=== PATIENT | female | born 1935 | race Caucasian/White ===

== ENCOUNTER 2018-09-16 22:57 | Inpatient (IN) | payer BC, MEDICARE ==
[~2018-09-16] VITALS: Ht 172.7 cm; Wt 88.7 kg
[2018-09-16] MEDS ORDERED: ASPIRIN 81 MG TABLET CHEW PO ONE (23:30)
[2018-09-16] MEDS ORDERED: SODIUM CHLORIDE FLUSH 10ML SYR IVF ONE (23:30)
[2018-09-16] MEDS ORDERED: DILTIAZEM 5 MG/ML, 5ML IV ONE (23:30)
[2018-09-16 23:31] LABS: BASOPHILS # (AUTO) 0.03 x10^3/uL (0-0.1); BASOPHILS % (AUTO) 0 % (0-1); EOSINOPHILS # (AUTO) 0.14 x10^3/uL (0-0.4); EOSINOPHILS % (AUTO) 2 % (1-7); LYMPHOCYTES # (AUTO) 1.62 x10^3/uL (1-3.4); LYMPHOCYTES % (AUTO) 17 % (22-44); MD NO; MEAN CORPUSCULAR HEMOGLOBIN 31.7 pg (27.0-34.8); MEAN CORPUSCULAR HGB CONC 33.6 g/dL (32.4-35.8); MEAN CORPUSCULAR VOLUME 94.5 fL (80-100); MONOCYTES # (AUTO) 0.66 x10^3/uL (0.2-0.8); MONOCYTES % (AUTO) 7 % (2-9); NEUTROPHILS # (AUTO) 7.18 x10^3/uL (1.8-6.8); NEUTROPHILS % (AUTO) 75 % (42-75); PLATELET COUNT 278 x10^3/uL (130-400); RED CELL DISTRIBUTION WIDTH 14.9 % (9.6-15.2)
[2018-09-16] MEDS ORDERED: DILTIAZEM 5 MG/ML, 5ML ONE (23:31)
[2018-09-16] MEDS ORDERED: ASPIRIN 81 MG TABLET CHEW ONE (23:31)
[2018-09-16 23:42] LABS: INTERNATIONAL NORMALIZED RATIO 1.25 (0.93-1.1); PROTHROMBIN TIME 13.1 Seconds (9.6-11.5)
[2018-09-16 23:44] LABS: CHLORIDE 98 mmol/L (98-107)
[2018-09-16 23:45] LABS: ALBUMIN 3.9 g/dL (3.4-5.0); ANION GAP 11 mmol/L (5-15); CALCIUM 8.9 mg/dL (8.5-10.1); CREATININE 1.25 mg/dL (0.55-1.02)
[2018-09-16 23:49] LABS: FREE T4 (FREE THYROXINE) 1.54 ng/dL (0.76-1.46); TROPONIN I 0.239 ng/mL (0.000-0.045)
[2018-09-17] MEDS ORDERED: DOCUSATE 100 MG CAPSULE PO PRN (01:00)
[2018-09-17] MEDS ORDERED: DILTIAZEM 5 MG/ML, 5ML IVPush PRN (01:00)
[2018-09-17] MEDS ORDERED: ACETAMINOPHEN 325 MG TABLET PO PRN (01:00)
[2018-09-17] MEDS ORDERED: GUAIFENESIN/DM 200-20MG, 10ML UDC PO PRN (01:00)
[2018-09-17] MEDS ORDERED: ONDANSETRON 2MG/ML, 2ML IVPush PRN (01:00)
[2018-09-17] MEDS ORDERED: LIDODERM 5% PATCH TD PRN (01:00)
[2018-09-17] MEDS ORDERED: TEMAZEPAM 15 MG CAPSULE PO PRN (01:00)
[2018-09-17 01:26] LABS: TROPONIN I 0.212 ng/mL (0.000-0.045)
[2018-09-17 02:01] VITALS: BP 154/93
[2018-09-17 07:35] VITALS: BP 148/81
[2018-09-17 07:45] LABS: TROPONIN I 0.201 ng/mL (0.000-0.045)
[2018-09-17] MEDS: LACTOBACILLUS 1GM/ PACKET PO SCH (08:49)
[2018-09-17] MEDS: METOPROLOL TARTRATE 25 MG TABLET PO SCH ×3 (09:00→18:37)
[2018-09-17] MEDS ORDERED: ENOXAPARIN 40 MG/0.4 ML SQ SCH (09:00)
[2018-09-17] MEDS ORDERED: METOPROLOL TARTRATE 50 MG TABLET PO SCH (09:00)
[2018-09-17 12:45] VITALS: BP 128/81
[2018-09-17] MEDS: ASPIRIN 325 MG TABLET EC PO SCH (18:26)
[2018-09-17 19:49] VITALS: BP 132/86
[2018-09-18 00:42] VITALS: BP 123/92
[2018-09-18] MEDS: METOPROLOL TARTRATE 25 MG TABLET PO SCH ×2 (00:46→06:30)
[2018-09-18 05:32] LABS: ANION GAP 9 mmol/L (5-15); CALCIUM 8.3 mg/dL (8.5-10.1); CHLORIDE 101 mmol/L (98-107)
[2018-09-18 05:33] LABS: CREATININE 1.33 mg/dL (0.55-1.02)
[2018-09-18] MEDS: ASPIRIN 325 MG TABLET EC PO SCH (06:30)
[2018-09-18] MEDS: LACTOBACILLUS 1GM/ PACKET PO SCH (07:50)
== END 2018-09-18 08:53 | disposition left against medical advice (07) | DRG 309 ==
LOC: ED 09-17 00:22 → EDIP 09-17 00:46 → 5SO 09-17 01:48
PROVIDERS: ADMIT Internal Medicine; ATTEND Internal Medicine
DX: I48.91 Unspecified atrial fibrillation (principal); J90 Pleural effusion, not elsewhere classified; I31.3 Pericardial effusion (noninflammatory); E87.1 Hypo-osmolality and hyponatremia; N17.9 Acute kidney failure, unspecified; I42.9 Cardiomyopathy, unspecified; I10 Essential (primary) hypertension; R73.9 Hyperglycemia, unspecified; Z53.21 Procedure and treatment not carried out due to patient leaving prior to being seen by health care provider; J40 Bronchitis, not specified as acute or chronic; Z96.653 Presence of artificial knee joint, bilateral; Z98.1 Arthrodesis status
CPT/HCPCS: 36415; 71045; 80048; 82040; 83735; 83880; 84145; 84439; 84443; 84484; 85025; 85610; 85730; 93005; 93306; 96374; 99291; G0378; J1650; J2405

== ENCOUNTER 2020-12-29 04:35 | Emergency (ER) | payer BC, MEDICARE ==
[~2020-12-29] VITALS: Ht 172.7 cm; Wt 80.0 kg
--- NOTE | 2020-12-29 05:02 | NUR ---
PT HERE BECAUSE OF SOB, PT STATES SHE GOT PUT ON NEW MEDS, INCLUDING AMIODERONE AND LOSARTAN, AND THINKS THAT SHE HAS BEEN HAVING ADVERSE EFFECTS INCLUDING N/V/D AND THE SOB ESPECIALLY WITH EXERTION. PT DENIES PAIN, EKG DONE IN TRIAGE, PT ON ALL MONITORS, AWAITING ERP EVAL
--- NOTE | 2020-12-29 05:04 | NUR ---
PT RHYTM SEEMS TO BE GOING IN AND OUT OF A-FIB. PT HAS HISTORY OF A-FIB
[2020-12-29] MEDS ORDERED: METOPROLOL 1 MG/ML, 5ML IVPush PRN (05:30)
[2020-12-29] MEDS ORDERED: METOPROLOL 1 MG/ML, 5ML ONE (05:37)
[2020-12-29 05:42] LABS: BASOPHILS % (AUTO) 1 % (0-1); EOSINOPHILS % (AUTO) 3 % (1-7); LYMPHOCYTES % (AUTO) 17 % (22-44); MD NO; MEAN CORPUSCULAR HEMOGLOBIN 30.2 pg (27.0-34.8); MEAN CORPUSCULAR HGB CONC 33.4 g/dL (32.4-35.8); MEAN PLATELET VOLUME 7.8 fL (7.4-10.4); MONOCYTES % (AUTO) 8 % (2-9); NEUTROPHILS % (AUTO) 71 % (42-75); PLATELET COUNT 278 x10^3/uL (130-400); RED BLOOD COUNT 4.31 x10^6/uL (3.82-5.3); RED CELL DISTRIBUTION WIDTH 15.1 % (9.6-15.2)
--- NOTE | 2020-12-29 05:49 | NUR ---
PIV PLACED, LABS DRAWN, MEDICATION ADMINISTED, CXR AT BEDSIDE
[2020-12-29 05:54] LABS: ANION GAP 9 mmol/L (5-15); CALCIUM 8.8 mg/dL (8.5-10.1); CHLORIDE 100 mmol/L (98-107); CREATININE 1.49 mg/dL (0.55-1.02)
[2020-12-29 05:55] LABS: ALANINE AMINOTRANSFERASE 57 U/L (12-78); ALBUMIN 3.4 g/dL (3.4-5.0)
[2020-12-29 05:57] LABS: ALKALINE PHOSPHATASE 69 U/L (45-117); TOTAL PROTEIN 6.9 g/dL (6.4-8.2)
--- NOTE | 2020-12-29 06:36 | NUR ---
PT'S HEART RATE IS IRRGULAR BUT GOING FROM HIGH 80'S TO HIGH 90'S
[2020-12-29] MEDS ORDERED: METOPROLOL TARTRATE 25 MG TAB PO ONE (07:00)
--- NOTE | 2020-12-29 07:00 | NUR ---
report given to niki perez
--- NOTE | 2020-12-29 07:09 | NUR ---
report received from joaquim prince.
[2020-12-29] MEDS ORDERED: METOPROLOL TARTRATE 25 MG TAB ONE (07:12)
--- NOTE | 2020-12-29 07:29 | NUR ---
pt medicated per emar. pt tolerated well. pt's hr is 90's with a-fib at this time. pt denies any needs or concerns at this time.
[2020-12-29 08:26] VITALS: BP 133/93
--- NOTE | 2020-12-29 08:27 | NUR ---
Patient given discharge instructions and they have confirmed that they understand the instructions. Patient wheeled to dc with her .
== END 2020-12-29 08:28 | disposition home or self-care (01) ==
LOC: ED 06:13
DX: I48.0 Paroxysmal atrial fibrillation (principal); J15.9 Unspecified bacterial pneumonia; I10 Essential (primary) hypertension
CPT/HCPCS: 36415; 71045; 80053; 85025; 93005; 96374

== ENCOUNTER 2021-01-19 06:00 | Observation (INO) | payer BC ==
[~2021-01-19] VITALS: Ht 172.7 cm; Wt 86.6 kg
[2021-01-19] MEDS ORDERED: SODIUM CHLORIDE 0.9% 1,000 ML IV SCH ×2 (06:30)
[2021-01-19 07:05] VITALS: BP 146/107
[2021-01-19] MEDS ORDERED: LOSA25TA25 PO (07:05)
[2021-01-19] MEDS ORDERED: METO25TA35 PO (07:05)
[2021-01-19] MEDS ORDERED: APIX5TAB PO (07:05)
[2021-01-19] MEDS ORDERED: FURO20TA3 PO (07:05)
[2021-01-19 07:07] LABS: BASOPHILS % (AUTO) 1 % (0-1); EOSINOPHILS % (AUTO) 1 % (1-7); LYMPHOCYTES % (AUTO) 15 % (22-44); MEAN CORPUSCULAR HEMOGLOBIN 29.3 pg (27.0-34.8); MEAN CORPUSCULAR HGB CONC 33.5 g/dL (32.4-35.8); MEAN PLATELET VOLUME 7.8 fL (7.4-10.4); MONOCYTES % (AUTO) 7 % (2-9); NEUTROPHILS % (AUTO) 76 % (42-75); PLATELET COUNT 295 x10^3/uL (130-400); RED BLOOD COUNT 4.77 x10^6/uL (3.82-5.3)
[2021-01-19 07:09] LABS: ANION GAP 10 mmol/L (5-15); CALCIUM 9.5 mg/dL (8.5-10.1); CHLORIDE 98 mmol/L (98-107)
[2021-01-19 07:10] LABS: CREATININE 1.33 mg/dL (0.55-1.02); MD NO
[2021-01-19] MEDS ORDERED: LIDOCAINE 2%, 20ML ONE ×2 (07:45→09:33)
[2021-01-19] MEDS ORDERED: CEFAZOLIN PMX 1GM/50ML 50 ML ONE (07:45)
[2021-01-19] MEDS ORDERED: CEFAZOLIN 1,000 MG ONE (07:45)
[2021-01-19] MEDS ORDERED: MIDAZOLAM 1 MG/ML, 5ML ONE (07:45)
[2021-01-19] MEDS ORDERED: FENTANYL PF 100 MCG/2ML ONE ×2 (07:45→09:27)
[2021-01-19] MEDS ORDERED: MIDAZOLAM 1 MG/ML, 2ML ONE (09:27)
[2021-01-19] MEDS ORDERED: ACETAMINOPHEN 325 MG TABLET PO PRN (10:30)
[2021-01-19] MEDS ORDERED: HOLD MEDICATION MC PRN (10:30)
[2021-01-19] MEDS ORDERED: FUROSEMIDE 40 MG/4 ML IV ONE (12:00)
[2021-01-19] MEDS ORDERED: POTASSIUM CHLORIDE 20 MEQ TAB.ER.PRT PO ONE (12:00)
[2021-01-19 13:23] VITALS: BP 100/67
[2021-01-19] MEDS: CEFAZOLIN PMX 1GM/50ML 50 ML IVPB SCH ×2 (14:01→21:20)
[2021-01-19 19:04] VITALS: BP 99/68
[2021-01-19] MEDS: SODIUM CHLORIDE FLUSH 10ML SYR IVF SCH (21:00)
[2021-01-19] MEDS: METOPROLOL TARTRATE 25 MG TAB PO SCH (21:26)
[2021-01-19 23:08] VITALS: BP 94/51
[2021-01-20] MEDS ORDERED: LOSARTAN 25MG TABLET PO SCH (09:00)
[2021-01-20] MEDS ORDERED: FUROSEMIDE 20 MG TABLET PO SCH (09:00)
[2021-01-20] MEDS: SODIUM CHLORIDE FLUSH 10ML SYR IVF SCH (09:00)
[2021-01-20] MEDS ORDERED: FURO40TA6 PO (09:02)
[2021-01-20] MEDS ORDERED: POTA20TA89 PO (09:02)
[2021-01-20] MEDS ORDERED: ACET325T26 PO (09:02)
[2021-01-20 09:15] VITALS: BP 121/78
[2021-01-20] MEDS: METOPROLOL TARTRATE 25 MG TAB PO SCH (10:18)
== END 2021-01-20 11:14 | disposition home or self-care (01) ==
LOC: CACL 06:00 → 5SO 10:08 → DCLOUNGE 01-20 11:05
PROVIDERS: ADMIT Internal Medicine Cardiovascular Disease; ATTEND Internal Medicine Cardiovascular Disease
DX: I44.7 Left bundle-branch block, unspecified (principal); I11.0 Hypertensive heart disease with heart failure; I50.9 Heart failure, unspecified; I42.9 Cardiomyopathy, unspecified; I49.5 Sick sinus syndrome; I44.2 Atrioventricular block, complete; I45.5 Other specified heart block; I48.20 Chronic atrial fibrillation, unspecified; Z79.01 Long term (current) use of anticoagulants; Z79.899 Other long term (current) drug therapy
CPT/HCPCS: 33207; 33225; 36415; 71045; 71046; 80048; 85025; 93650; 96365; 96366; 96375; 99156; 99157; C1769; C1779; C1887; C1892; C1894; C1900; C2621; C2630; G0378; J0690; J1940; J2250; J3010; J3490; Q9967

== ENCOUNTER 2021-02-09 05:30 | Emergency (ER) | payer BC ==
[~2021-02-09] VITALS: Ht 172.7 cm; Wt 78.0 kg
[~2021-02-09 05:30] MED LIST: ACET325T26 PO; APIX5TAB PO; FURO20TA3 PO; FURO40TA6 PO; LOSA25TA25 PO; METO25TA35 PO; POTA20TA89 PO
[2021-02-09 05:33] VITALS: BP 143/85
--- NOTE | 2021-02-09 05:51 | NUR ---
ERP AT BEDSIDE
--- NOTE | 2021-02-09 06:01 | NUR ---
lab at bedside
[2021-02-09 06:12] LABS: BASOPHILS % (AUTO) 1 % (0-1); EOSINOPHILS % (AUTO) 2 % (1-7); LYMPHOCYTES % (AUTO) 14 % (22-44); MEAN CORPUSCULAR HEMOGLOBIN 28.1 pg (27.0-34.8); MEAN CORPUSCULAR HGB CONC 33.1 g/dL (32.4-35.8); MEAN PLATELET VOLUME 7.3 fL (7.4-10.4); MONOCYTES % (AUTO) 9 % (2-9); NEUTROPHILS % (AUTO) 74 % (42-75); PLATELET COUNT 286 x10^3/uL (130-400); RED BLOOD COUNT 4.44 x10^6/uL (3.82-5.3); RED CELL DISTRIBUTION WIDTH 17.5 % (9.6-15.2)
[2021-02-09 06:14] LABS: MD NO
[2021-02-09 06:26] LABS: ALANINE AMINOTRANSFERASE 36 U/L (12-78); ALBUMIN 3.6 g/dL (3.4-5.0); ANION GAP 10 mmol/L (5-15); CHLORIDE 101 mmol/L (98-107); CREATININE 1.13 mg/dL (0.55-1.02)
[2021-02-09 06:28] LABS: ALKALINE PHOSPHATASE 72 U/L (45-117); BILIRUBIN,TOTAL 1.3 mg/dL (0.2-1.0); TOTAL PROTEIN 7.2 g/dL (6.4-8.2)
== END 2021-02-09 07:05 | disposition home or self-care (01) ==
LOC: ED 07:04
DX: L29.8 Other pruritus (principal); I11.0 Hypertensive heart disease with heart failure; I48.91 Unspecified atrial fibrillation
CPT/HCPCS: 36415; 80053; 85025; 99283

== ENCOUNTER 2021-03-08 06:13 | Inpatient (IN) | payer BC, MEDICARE ==
[~2021-03-08] VITALS: Ht 172.7 cm; Wt 71.8 kg
--- NOTE | 2021-03-08 06:54 | NUR ---
Report to Doris SAUNDERS
--- NOTE | 2021-03-08 06:57 | NUR ---
Report received and care assumed. Pt A/O x4, EKG 12 lead and PCXR already performed. dietetic technician registered in room across the miller and states she is coming here next. Pt aware of order for IV start without meds so far. Pt assessment completed.
[2021-03-08] MEDS ORDERED: SODIUM CHLORIDE FLUSH 10ML SYR IVF ONE (07:00)
[2021-03-08 07:15] LABS: BASOPHILS % (AUTO) 0 % (0-1); EOSINOPHILS % (AUTO) 1 % (1-7); LYMPHOCYTES % (AUTO) 6 % (22-44); MEAN CORPUSCULAR HEMOGLOBIN 28.3 pg (27.0-34.8); MEAN CORPUSCULAR HGB CONC 33.4 g/dL (32.4-35.8); MEAN PLATELET VOLUME 7.5 fL (7.4-10.4); MONOCYTES % (AUTO) 5 % (2-9); NEUTROPHILS % (AUTO) 88 % (42-75); PLATELET COUNT 305 x10^3/uL (130-400); RED BLOOD COUNT 4.67 x10^6/uL (3.82-5.3); RED CELL DISTRIBUTION WIDTH 20.4 % (9.6-15.2)
[2021-03-08] MEDS ORDERED: AMPICILLIN/SULBACTAM 3 GM in SODIUM CHLORIDE 0.9% 100 ML IV ONE (07:20)
[2021-03-08 07:25] LABS: ALBUMIN 3.4 g/dL (3.4-5.0); ANION GAP 8 mmol/L (5-15); CALCIUM 8.8 mg/dL (8.5-10.1); CHLORIDE 104 mmol/L (98-107)
[2021-03-08] MEDS ORDERED: HYDROmorphone 1 MG/ML, 1ML INJ ONE (07:29)
[2021-03-08] MEDS ORDERED: HYDROmorphone 1 MG/ML, 1ML INJ IVPush PRN (07:30)
--- NOTE | 2021-03-08 07:41 | NUR ---
IV started with aseptic technique. Attempt to draw blood for a set of BC unsuccessful and dentures lab technician at bedside to draw both sets as ordered.
[2021-03-08 07:48] LABS: ALANINE AMINOTRANSFERASE 35 U/L (12-78); ALKALINE PHOSPHATASE 96 U/L (45-117); BILIRUBIN,TOTAL 1.3 mg/dL (0.2-1.0); CREATININE 1.14 mg/dL (0.55-1.02); TOTAL PROTEIN 7.4 g/dL (6.4-8.2)
--- NOTE | 2021-03-08 07:50 | NUR ---
IV pain med given with 0.5mg IVP given to start. Pt has some pain relief after admin noted 8/10 rated from 9/10 on reassessment. Unasyn gtt started as ordered.
[2021-03-08 07:52] LABS: TROPONIN I 0.344 ng/mL (0.000-0.045)
--- NOTE | 2021-03-08 07:54 | NUR ---
Critical lab received from [facility] and notified MD. US velazquez at bedside at this time for BLE eval for DVT. Unasyn running without issue. Pt aware of pending admission. Pt denies c/o chest pain or SOB at this time. All other lab and radiology results reviewed at this time by RN. Noted CXR stating early CHF possible.
--- NOTE | 2021-03-08 08:40 | NUR ---
Report called to [facility] and pt readied for transfer to floor.
[2021-03-08] MEDS ORDERED: ONDANSETRON 2MG/ML, 2ML ONE (08:46)
--- NOTE | 2021-03-08 08:52 | NUR ---
Pt given Zofran for sudden nausea with dry heaves after pain meds with good effect. Pain 5-6/10 and second 0.5mg of Dilaudid given once Zofran started to work for better pain control.
[2021-03-08] MEDS ORDERED: ONDANSETRON 2MG/ML, 2ML IVPush ONE (09:00)
[2021-03-08] MEDS ORDERED: FURO20TA3 PO (09:01)
[2021-03-08 09:17] VITALS: BP 156/81
[2021-03-08 09:33] VITALS: BP 156/81
[2021-03-08] MEDS ORDERED: FUROSEMIDE 20 MG/2 ML IV ONE (10:00)
[2021-03-08] MEDS ORDERED: PROMETHAZINE 25 MG/ML, 1ML IM PRN (10:00)
[2021-03-08] MEDS: APIXABAN 5 MG TABLET PO SCH ×3 (11:06→20:16)
[2021-03-08] MEDS: LOSARTAN 25MG TABLET PO SCH (11:06)
[2021-03-08] MEDS: POTASSIUM CHLORIDE 20 MEQ TAB.ER.PRT PO SCH (11:06)
[2021-03-08] MEDS: BUMETANIDE 1 MG TABLET PO SCH (11:07)
[2021-03-08] MEDS ORDERED: ACETAMINOPHEN 325 MG TABLET PO PRN (11:30)
[2021-03-08] MEDS ORDERED: ONDANSETRON 2MG/ML, 2ML IVPush PRN (11:30)
[2021-03-08] MEDS ORDERED: BACLOFEN 10 MG TABLET PO PRN (11:30)
[2021-03-08] MEDS ORDERED: ONDANSETRON ODT 4 MG PO PRN (11:30)
[2021-03-08] MEDS ORDERED: ENALAPRILAT 1.25 MG/ML, 2ML IVPush PRN (11:30)
[2021-03-08] MEDS ORDERED: hydrALAzine 20 MG/ML, 1ML IVPush PRN (11:30)
[2021-03-08] MEDS ORDERED: BUTALB/APAP/CAFFEINE 50MG/325MG/40MG PO PRN ×2 (11:30)
[2021-03-08 12:25] LABS: TROPONIN I 0.309 ng/mL (0.000-0.045)
[2021-03-08 13:05] VITALS: BP 153/87
[2021-03-08] MEDS: AMPICILLIN/SULBACTAM 3 GM in SODIUM CHLORIDE 0.9% 100 ML IV SCH (18:29)
[2021-03-08 19:33] LABS: TROPONIN I 0.272 ng/mL (0.000-0.045)
[2021-03-08 20:12] VITALS: BP 131/74
[2021-03-08] MEDS: MELATONIN 5 MG TABLET PO SCH (20:17)
[2021-03-08 23:56] VITALS: BP 136/82
[2021-03-09 04:45] LABS: BASOPHILS % (AUTO) 1 % (0-1); EOSINOPHILS % (AUTO) 1 % (1-7); LYMPHOCYTES % (AUTO) 8 % (22-44); MEAN CORPUSCULAR HEMOGLOBIN 28.1 pg (27.0-34.8); MEAN CORPUSCULAR HGB CONC 33.7 g/dL (32.4-35.8); MEAN PLATELET VOLUME 7.5 fL (7.4-10.4); MONOCYTES % (AUTO) 7 % (2-9); NEUTROPHILS % (AUTO) 84 % (42-75); PLATELET COUNT 250 x10^3/uL (130-400); RED CELL DISTRIBUTION WIDTH 20.2 % (9.6-15.2)
[2021-03-09 04:53] LABS: ANION GAP 10 mmol/L (5-15); CALCIUM 8.3 mg/dL (8.5-10.1); CHLORIDE 104 mmol/L (98-107); CREATININE 1.09 mg/dL (0.55-1.02)
[2021-03-09] MEDS: AMPICILLIN/SULBACTAM 3 GM in SODIUM CHLORIDE 0.9% 100 ML IV SCH ×2 (05:53→17:55)
[2021-03-09 07:10] VITALS: BP 138/83
[2021-03-09] MEDS: SENNA/DOCUSATE TABLET PO SCH (09:20)
[2021-03-09] MEDS: BUMETANIDE 1 MG TABLET PO SCH (09:20)
[2021-03-09] MEDS: LOSARTAN 25MG TABLET PO SCH (09:20)
[2021-03-09] MEDS: FUROSEMIDE 40 MG TABLET PO SCH ×2 (09:20→17:55)
[2021-03-09] MEDS: APIXABAN 5 MG TABLET PO SCH ×2 (09:20→20:09)
[2021-03-09] MEDS: POTASSIUM CHLORIDE 20 MEQ TAB.ER.PRT PO SCH (09:20)
[2021-03-09] MEDS ORDERED: POTASSIUM CHLORIDE 20 MEQ TAB.ER.PRT PO ONE (12:00)
[2021-03-09 13:46] VITALS: BP 147/86
[2021-03-09] MEDS: CARVEDILOL 3.125 MG TABLET PO SCH (17:54)
[2021-03-09 18:52] VITALS: BP 135/80
[2021-03-09] MEDS: MELATONIN 5 MG TABLET PO SCH (20:09)
[2021-03-10 00:44] VITALS: BP 136/89
[2021-03-10 05:58] LABS: ANION GAP 10 mmol/L (5-15); CALCIUM 9.1 mg/dL (8.5-10.1); CHLORIDE 106 mmol/L (98-107); CREATININE 1.04 mg/dL (0.55-1.02)
[2021-03-10 06:20] VITALS: BP 134/76
[2021-03-10] MEDS: AMPICILLIN/SULBACTAM 3 GM in SODIUM CHLORIDE 0.9% 100 ML IV SCH (06:21)
[2021-03-10] MEDS: CARVEDILOL 3.125 MG TABLET PO SCH (06:21)
[2021-03-10] MEDS: FUROSEMIDE 40 MG TABLET PO SCH (08:28)
[2021-03-10] MEDS: SENNA/DOCUSATE TABLET PO SCH (08:28)
[2021-03-10] MEDS: APIXABAN 5 MG TABLET PO SCH (08:28)
[2021-03-10] MEDS: POTASSIUM CHLORIDE 20 MEQ TAB.ER.PRT PO SCH (08:28)
[2021-03-10] MEDS: LOSARTAN 25MG TABLET PO SCH (08:28)
[2021-03-10] MEDS ORDERED: FURO-92 PO (09:26)
[2021-03-10] MEDS ORDERED: APIX5TAB PO (09:26)
[2021-03-10] MEDS ORDERED: CARV3.1212 PO (09:26)
[2021-03-10] MEDS ORDERED: AMOX1TAB64 PO (09:26)
== END 2021-03-10 11:15 | disposition home or self-care (01) | DRG 602 ==
LOC: MERGE 08:25 → ED 08:25 → EDIP 09:00 → 5SO 09:03 → DCLOUNGE 03-10 11:04
PROVIDERS: ADMIT Internal Medicine; ATTEND Family Medicine
DX: L03.115 Cellulitis of right lower limb (principal); I50.23 Acute on chronic systolic (congestive) heart failure; I42.9 Cardiomyopathy, unspecified; I48.19 Other persistent atrial fibrillation; I13.0 Hypertensive heart and chronic kidney disease with heart failure and stage 1 through stage 4 chronic kidney disease, or unspecified chronic kidney disease; L03.116 Cellulitis of left lower limb; I08.1 Rheumatic disorders of both mitral and tricuspid valves; Z88.8 Allergy status to other drugs, medicaments and biological substances; E87.6 Hypokalemia; I25.10 Atherosclerotic heart disease of native coronary artery without angina pectoris; I25.5 Ischemic cardiomyopathy; I27.20 Pulmonary hypertension, unspecified; N18.30 Chronic kidney disease, stage 3 unspecified; Z79.01 Long term (current) use of anticoagulants; Z79.899 Other long term (current) drug therapy; Z87.891 Personal history of nicotine dependence; Z95.0 Presence of cardiac pacemaker; Z95.5 Presence of coronary angioplasty implant and graft
CPT/HCPCS: 36415; 71045; 80048; 80053; 82962; 83605; 83880; 84481; 84484; 85025; 87040; 93005; 93306; 96365; 96375; G0378; J0295; J1170; J2405; J2550; J1940

== ENCOUNTER 2021-03-18 20:40 | Emergency (ER) | payer BC, MEDICARE ==
[~2021-03-18] VITALS: Ht 172.7 cm; Wt 78.5 kg
[~2021-03-18 20:40] MED LIST changes: +AMOX1TAB64 PO; +CARV3.1212 PO; +FURO-92 PO
--- NOTE | 2021-03-18 23:48 | NUR ---
No breakthrough bleeding through pressure dressing. Waiting for ERP evaluation.
--- NOTE | 2021-03-18 23:58 | NUR ---
ERP at bedside now for evaluation.
[2021-03-19] MEDS ORDERED: MICROFIBRILLAR COLLAGEN 1 GM TP ONE (00:05)
[2021-03-19] MEDS ORDERED: LIDOCAINE 1%-EPI 1:100K, 20ML ONE (00:05)
--- NOTE | 2021-03-19 00:07 | NUR ---
Suture kit to bedside with supplies.
--- NOTE | 2021-03-19 00:21 | NUR ---
Being sutured now, bleeding controlled.
--- NOTE | 2021-03-19 00:40 | NUR ---
andrés Carpio, for wound. Leg elevated, b/p stable.
--- NOTE | 2021-03-19 00:50 | NUR ---
Jess celestin in ED - 03/19/21 at 0050 by [email or web address] task rn: report of pt from niki lemus and assuming care of pt at this time.
--- NOTE | 2021-03-19 00:51 | NUR ---
task rn: report of pt from niki lemus and assuming care of pt at this time.
--- NOTE | 2021-03-19 01:59 | NUR ---
BREAK RN: PT ABLE TO AMBULATE WITH NO DIFFICULTY. PT TO BE DISCHARGED.
[2021-03-19 02:11] VITALS: BP 146/72
== END 2021-03-19 02:13 | disposition home or self-care (01) ==
LOC: ED 23:54
DX: S81.811A Laceration without foreign body, right lower leg, initial encounter (principal); I11.0 Hypertensive heart disease with heart failure; I50.9 Heart failure, unspecified; I48.91 Unspecified atrial fibrillation; Z95.0 Presence of cardiac pacemaker; X58.XXXA Exposure to other specified factors, initial encounter; Y93.89 Activity, other specified; Y92.89 Other specified places as the place of occurrence of the external cause; Y99.8 Other external cause status
CPT/HCPCS: 12001; 99282; 99285

== ENCOUNTER 2021-03-21 09:43 | Emergency (ER) | payer BC ==
[~2021-03-21] VITALS: Ht 172.7 cm; Wt 70.6 kg
[2021-03-21 09:48] VITALS: BP 129/81
--- NOTE | 2021-03-21 10:19 | NUR ---
EMT AT BEDSIDE TO CLEAN.
== END 2021-03-21 11:33 | disposition home or self-care (01) ==
LOC: ED 10:57
DX: S81.811D Laceration without foreign body, right lower leg, subsequent encounter (principal); I11.0 Hypertensive heart disease with heart failure; I50.9 Heart failure, unspecified; I48.91 Unspecified atrial fibrillation; X58.XXXD Exposure to other specified factors, subsequent encounter
CPT/HCPCS: 99281

== ENCOUNTER 2021-03-23 17:33 | Observation (INO) | payer BC ==
[~2021-03-23] VITALS: Ht 172.7 cm; Wt 74.3 kg
--- NOTE | 2021-03-23 18:26 | NUR ---
pt biba, per ems pt had syncopal even today witnessed by , denies any trauma or midline cervical tenderness. pacemaker placed 1 month ago. pt a&o, resps even and unlabored, vss, all monitors attached, paced rhythm normal sinus. malik Biggs at bedside for eval.
--- NOTE | 2021-03-23 18:42 | NUR ---
pacemaker interrogated
--- NOTE | 2021-03-23 18:46 | NUR ---
REPORT GIVEN TO STU SAUNDERS
[2021-03-23 19:03] LABS: BASOPHILS % (AUTO) 1 % (0-1); EOSINOPHILS % (AUTO) 1 % (1-7); LYMPHOCYTES % (AUTO) 11 % (22-44); MEAN CORPUSCULAR HEMOGLOBIN 28.4 pg (27.0-34.8); MEAN PLATELET VOLUME 8.1 fL (7.4-10.4); MONOCYTES % (AUTO) 8 % (2-9); NEUTROPHILS % (AUTO) 79 % (42-75); PLATELET COUNT 260 x10^3/uL (130-400); RED BLOOD COUNT 4.15 x10^6/uL (3.82-5.3); RED CELL DISTRIBUTION WIDTH 21.4 % (9.6-15.2)
[2021-03-23 19:16] LABS: ALBUMIN 3.2 g/dL (3.4-5.0); ANION GAP 10 mmol/L (5-15); CALCIUM 8.8 mg/dL (8.5-10.1); CHLORIDE 102 mmol/L (98-107)
[2021-03-23] MEDS ORDERED: ASPIRIN 81 MG TABLET CHEW ONE (19:25)
[2021-03-23] MEDS ORDERED: ASPIRIN 325 MG TABLET PO ONE (19:30)
[2021-03-23] MEDS ORDERED: ASPIRIN 81 MG TABLET CHEW PO ONE (19:30)
--- NOTE | 2021-03-23 19:31 | NUR ---
First contact with patient, no chest pain no sob. Repeat EKG being done, asa chewable per order given. On monitor, cont pulse ox. VSS.
--- NOTE | 2021-03-23 19:58 | NUR ---
Waiting for tele bed, no complaints at this time. at bedside.
[2021-03-23 20:56] VITALS: BP 146/91
[2021-03-23] MEDS ORDERED: BUTALB/APAP/CAFFEINE 50MG/325MG/40MG PO PRN (22:30)
[2021-03-23] MEDS ORDERED: ACETAMINOPHEN 325 MG TABLET PO PRN (22:30)
[2021-03-23] MEDS ORDERED: DOCUSATE 100 MG CAPSULE PO PRN (22:30)
[2021-03-23] MEDS ORDERED: GUAIFENESIN/DM 200-20MG, 10ML UDC PO PRN (22:30)
[2021-03-23] MEDS ORDERED: ENALAPRILAT 1.25 MG/ML, 2ML IVPush PRN (22:30)
[2021-03-23] MEDS ORDERED: MELATONIN 5 MG TABLET PO SCH (23:00)
[2021-03-23 23:20] LABS: TROPONIN I 0.266 ng/mL (0.000-0.045)
[2021-03-24 02:06] VITALS: BP 132/77
[2021-03-24 05:01] LABS: BASOPHILS % (AUTO) 1 % (0-1); EOSINOPHILS % (AUTO) 1 % (1-7); LYMPHOCYTES % (AUTO) 13 % (22-44); MEAN CORPUSCULAR HEMOGLOBIN 28.2 pg (27.0-34.8); MEAN CORPUSCULAR HGB CONC 33.3 g/dL (32.4-35.8); MONOCYTES % (AUTO) 11 % (2-9); NEUTROPHILS % (AUTO) 75 % (42-75); PLATELET COUNT 246 x10^3/uL (130-400); RED BLOOD COUNT 3.84 x10^6/uL (3.82-5.3); RED CELL DISTRIBUTION WIDTH 21.1 % (9.6-15.2)
[2021-03-24 05:13] LABS: ANION GAP 10 mmol/L (5-15); CALCIUM 8.7 mg/dL (8.5-10.1); CHLORIDE 105 mmol/L (98-107)
[2021-03-24 05:17] LABS: CREATININE 1.19 mg/dL (0.55-1.02); TROPONIN I 0.251 ng/mL (0.000-0.045)
[2021-03-24 06:50] VITALS: BP 141/93
[2021-03-24] MEDS ORDERED: APIXABAN 5 MG TABLET PO SCH (09:00)
[2021-03-24 10:01] LABS: FREE T4 (FREE THYROXINE) 1.54 ng/dL (0.76-1.46)
[2021-03-24 12:22] VITALS: BP 117/79
== END 2021-03-24 15:07 | disposition home or self-care (01) ==
LOC: ED 18:25 → INTOOBSV 20:37 → EDIP 20:37 → 5SO 20:48 → DCLOUNGE 03-24 14:51
PROVIDERS: ADMIT Internal Medicine; ATTEND Hospitalist
DX: I95.9 Hypotension, unspecified (principal); I13.0 Hypertensive heart and chronic kidney disease with heart failure and stage 1 through stage 4 chronic kidney disease, or unspecified chronic kidney disease; I50.22 Chronic systolic (congestive) heart failure; N18.30 Chronic kidney disease, stage 3 unspecified; I48.91 Unspecified atrial fibrillation; I08.1 Rheumatic disorders of both mitral and tricuspid valves; I25.10 Atherosclerotic heart disease of native coronary artery without angina pectoris; E87.1 Hypo-osmolality and hyponatremia; I21.4 Non-ST elevation (NSTEMI) myocardial infarction; D50.9 Iron deficiency anemia, unspecified; H53.9 Unspecified visual disturbance; Z79.899 Other long term (current) drug therapy; Z79.01 Long term (current) use of anticoagulants; Z95.5 Presence of coronary angioplasty implant and graft; Z95.810 Presence of automatic (implantable) cardiac defibrillator; Z96.659 Presence of unspecified artificial knee joint
CPT/HCPCS: 36415; 71045; 80048; 82040; 82607; 82728; 83540; 83550; 83880; 84439; 84443; 84484; 85025; 93005; 99285; G0378